=== PATIENT | male | born 1965 | race Two or more races ===

== ENCOUNTER → 2022-06-29 | Outpatient (CLI) | payer OTHER ==
[2022-06-29 14:47] LABS: ALBUMIN 3.4 G/DL (3.2-5.2); ALKALINE PHOSPHATASE 83 U/L (46-116); ALT/SGPT 27 U/L (7.0-40); AST/SGOT 17 U/L (<34); BILIRUBIN,TOTAL 0.5 MG/DL (0.3-1.2); BLOOD UREA NITROGEN 10 MG/DL (9-23); CARBON DIOXIDE LEVEL 23 MMOL/L (20-31); CHLORIDE LEVEL 112 MMOL/L (98-107); CREATININE FOR GFR 1.06 MG/DL (0.70-1.30); GLOMERULAR FILTRATION RATE > 60.0 (>56); GLUCOSE, FASTING 88 MG/DL (60-100); POTASSIUM SERUM 4.2 MMOL/L (3.5-5.1); SODIUM LEVEL 140 MMOL/L (136-145); TOTAL PROTEIN 7.9 G/DL (5.7-8.2)
[2022-06-29 15:03] LABS: HEPATITIS B SURFACE ANTIGEN NEGATIVE (NEGATIVE)
[2022-06-29 15:23] LABS: HEPATITIS C VIRUS ABY INDEX 0.1 INDEX (<0.8)
[2022-06-29 16:05] LABS: APPEARANCE, URINE HAZY (CLEAR); BACTERIA, URINE AUTO NEGATIVE (NEGATIVE); BILIRUBIN, URINE AUTO NEGATIVE (NEGATIVE); BLOOD, URINE BLOOD NEGATIVE (NEGATIVE); COLOR, URINE YELLOW (YELLOW); GLUCOSE, URINE (UA) AUTO NEGATIVE (NEGATIVE); KETONE, URINE AUTO NEGATIVE (NEGATIVE); LEUKOCYTE ESTERASE, URINE AUTO 2+ (NEGATIVE); MUCUS, URINE SMALL (NEGATIVE); NITRITE, URINE AUTO NEGATIVE (NEGATIVE); PROTEIN, URINE AUTO NEGATIVE (NEGATIVE); RBC, URINE AUTO 7 /HPF (0-3); SPECIFIC GRAVITY URINE AUTO 1.021 (1.002-1.035); SQUAMOUS EPITHELIAL CELL UR AU 1 /HPF (0-6); WBC, URINE AUTO 60 /HPF (0-3)
[2022-06-29 18:06] LABS: GC DNA AMPLIFICATION NEGATIVE (NEGATIVE)
[2022-06-30 12:37] LABS: % CD8 Pos Lymph 67.8 % (12.0-35.5); %CD4 Pos Lymphs 18.9 % (30.8-58.5); ABS Eosinophils 0.2 x10E3/uL (0.0-0.4); ABS Lymphs 3.7 x10E3/uL (0.7-3.1); ABS Monocytes 0.5 x10E3/uL (0.1-0.9); ABS Neutophils 1.8 x10E3/uL (1.4-7.0); Abs CD4 Helper 699 /uL (359-1519); Abs CD8 Suppres 2509 /uL (109-897); CD4/CD8 Ratio 0.28 (0.92-3.72); Eosinophils 3 % (Not Estab.); HCT 42.4 % (37.5-51.0); HGB 14.4 g/dL (13.0-17.7); Immature Grans 0 % (Not Estab.); Lymphocytes 59 % (Not Estab.); MCH 32.3 pg (26.6-33.0); MCV 95 fL (79-97); Monocytes 8 % (Not Estab.); Neutrophils 29 % (Not Estab.); Platelets 199 x10E3/uL (150-450); RBC 4.46 x10E6/uL (4.14-5.80); WBC 6.2 x10E3/uL (3.4-10.8)
[2022-07-03 14:08] LABS: HEPATITIS A IgG TOTAL Positive (Negative); HEPATITIS B CORE ANTIBODY IGG Positive (Negative); HIV-1 RNA PCR QUANT 2 LC550285 <20 copies/mL (.); HSV TYPE II IgG SPECIFIC 8.56 index (0.00-0.90)
== END ==
LOC: M PLALAB 11:15
PROVIDERS: ATTEND Internal Medicine Infectious Disease
DX: R21 Rash and other nonspecific skin eruption (principal); B20 Human immunodeficiency virus [HIV] disease; Z11.51 Encounter for screening for human papillomavirus (HPV)

== ENCOUNTER → 2022-07-27 | Outpatient (CLI) | payer OTHER | LOC: M PLALAB 14:43 | PROVIDERS: ATTEND Internal Medicine Infectious Disease | DX: B20 Human immunodeficiency virus [HIV] disease (principal) ==

== ENCOUNTER → 2022-09-26 | Outpatient (REF) | payer OTHER ==
[2022-09-26 17:38] LABS: BLOOD UREA NITROGEN 10 MG/DL (9-23); CALCIUM LEVEL 9.1 MG/DL (8.5-10.1); CARBON DIOXIDE LEVEL 25 MMOL/L (20-31); CHLORIDE LEVEL 104 MMOL/L (98-107); CHOLESTEROL LEVEL 190 MG/DL (<200); CREATININE FOR GFR 1.15 MG/DL (0.70-1.30); GLOMERULAR FILTRATION RATE > 60.0 (>56); GLUCOSE, FASTING 80 MG/DL (60-100); HDL CHOLESTEROL 61.1 MG/DL (>40); LDL CHOLESTEROL 100.9 MG/DL (<100); NON-HDL-C 128.9 MG/DL; POTASSIUM SERUM 4.3 MMOL/L (3.5-5.1); SODIUM LEVEL 135 MMOL/L (136-145); THYROID STIMULATING HORMONE 1.887 uIU/ML (0.55-4.78); TRIGLYCERIDES LEVEL 140 MG/DL (<150)
[2022-09-26 17:44] LABS: HEMOGLOBIN A1c 5.6 % (4.0-6.0)
== END ==
LOC: M LAB REF 16:12
PROVIDERS: ATTEND Nurse Practitioner Family
DX: I10 Essential (primary) hypertension (principal); E66.9 Obesity, unspecified

== ENCOUNTER → 2022-10-19 | Outpatient (CLI) | payer OTHER | LOC: M SOG 08:06 | PROVIDERS: ATTEND Physician Assistant | DX: Z53.9 Procedure and treatment not carried out, unspecified reason (principal) ==

== ENCOUNTER → 2022-11-16 | Outpatient (CLI) | payer OTHER ==
[2022-11-16 18:59] LABS: ALBUMIN 3.8 G/DL (3.2-5.2); ALKALINE PHOSPHATASE 101 U/L (46-116); ALT/SGPT 15 U/L (7.0-40); AST/SGOT 24 U/L (<34); BILIRUBIN,TOTAL 0.9 MG/DL (0.3-1.2); BLOOD UREA NITROGEN 13 MG/DL (9-23); CALCIUM LEVEL 9.6 MG/DL (8.5-10.1); CARBON DIOXIDE LEVEL 27 MMOL/L (20-31); CHLORIDE LEVEL 104 MMOL/L (98-107); CREATININE FOR GFR 1.23 MG/DL (0.70-1.30); GLOMERULAR FILTRATION RATE > 60.0 (>56); GLUCOSE, FASTING 83 MG/DL (60-100); POTASSIUM SERUM 4.1 MMOL/L (3.5-5.1); SODIUM LEVEL 139 MMOL/L (136-145); TOTAL PROTEIN 8.5 G/DL (5.7-8.2)
== END ==
LOC: M PLALAB 13:40
PROVIDERS: ATTEND Internal Medicine Infectious Disease
DX: B20 Human immunodeficiency virus [HIV] disease (principal); N52.9 Male erectile dysfunction, unspecified; Z20.2 Contact with and (suspected) exposure to infections with a predominantly sexual mode of transmission

== ENCOUNTER 2022-12-06 17:10 | Emergency (ER) | payer OTHER ==
[~2022-12-06] VITALS: Ht 170.2 cm; Wt 180.0 kg
[2022-12-06] MEDS ORDERED: SILD100T (17:25)
[2022-12-06] MEDS ORDERED: AMLO1TAB25 (17:25)
[2022-12-06 18:49] VITALS: BP 155/115; TEMP 97.6; O2SAT 98
[2022-12-06] MEDS ORDERED: ACETAMINOPHEN 500 MG TAB PO ONE (19:05)
[2022-12-06] MEDS ORDERED: IBUPROFEN 800 MG TAB PO ONE (19:05)
== END 2022-12-06 19:12 | disposition home or self-care (01) ==
LOC: M ED 17:10
DX: S50.312A Abrasion of left elbow, initial encounter (principal); S06.0X0A Concussion without loss of consciousness, initial encounter; M25.561 Pain in right knee; V13.4XXA Pedal cycle driver injured in collision with car, pick-up truck or van in traffic accident, initial encounter; I10 Essential (primary) hypertension; F17.200 Nicotine dependence, unspecified, uncomplicated; F12.90 Cannabis use, unspecified, uncomplicated

== ENCOUNTER → 2023-01-15 | Outpatient (CLI) | payer OTHER ==
[~2023-01-15] MED LIST: AMLO1TAB25; SILD100T
[2023-01-15 20:13] LABS: CHLAMYDIA DNA AMPLIFICATION NEGATIVE (NEGATIVE); GC DNA AMPLIFICATION NEGATIVE (NEGATIVE)
[2023-01-15 20:15] LABS: CHLAMYDIA DNA AMPLIFICATION NEGATIVE (NEGATIVE); GC DNA AMPLIFICATION NEGATIVE (NEGATIVE)
== END ==
LOC: M PLALAB 13:42
PROVIDERS: ATTEND Internal Medicine Infectious Disease
DX: B20 Human immunodeficiency virus [HIV] disease (principal)

== ENCOUNTER → 2023-02-08 | Outpatient (CLI) | payer OTHER | LOC: M SOG 15:28 | PROVIDERS: ATTEND Physician Assistant | DX: M25.572 Pain in left ankle and joints of left foot (principal) ==

== ENCOUNTER → 2023-05-18 | Outpatient (CLI) | payer OTHER ==
[2023-05-18 15:53] LABS: ALBUMIN 3.7 G/DL (3.2-5.2); BILIRUBIN,TOTAL 0.8 MG/DL (0.3-1.2); CALCIUM LEVEL 9.1 MG/DL (8.5-10.1); CREATININE FOR GFR 1.4 MG/DL (0.70-1.30); GLOMERULAR FILTRATION RATE 55.6 (>56); POTASSIUM SERUM 3.8 MMOL/L (3.5-5.1); TOTAL PROTEIN 8.5 G/DL (5.7-8.2)
[2023-05-22 13:07] LABS: % CD8 Pos Lymph 64.2 % (12.0-35.5); %CD4 Pos Lymphs 20.3 % (30.8-58.5); ABS Basophils 0.1 x10E3/uL (0.0-0.2); ABS Eosinophils 0.1 x10E3/uL (0.0-0.4); ABS Lymphs 4.4 x10E3/uL (0.7-3.1); ABS Monocytes 0.6 x10E3/uL (0.1-0.9); ABS Neutophils 2.6 x10E3/uL (1.4-7.0); Abs CD4 Helper 893 /uL (359-1519); Abs CD8 Suppres 2825 /uL (109-897); CD4/CD8 Ratio 0.32 (0.92-3.72); Eosinophils 1 % (Not Estab.); HCT 44.4 % (37.5-51.0); HGB 14.6 g/dL (13.0-17.7); HIV-1 RNA PCR QUANT 2 LC550285 <20 copies/mL (.); Immature Grans 0 % (Not Estab.); Lymphocytes 57 % (Not Estab.); MCH 30.9 pg (26.6-33.0); MCHC 32.9 g/dL (31.5-35.7); MCV 94 fL (79-97); Monocytes 7 % (Not Estab.); Neutrophils 34 % (Not Estab.); Platelets 273 x10E3/uL (150-450); RBC 4.72 x10E6/uL (4.14-5.80); RDW 14.4 % (11.6-15.4); WBC 7.7 x10E3/uL (3.4-10.8)
== END ==
LOC: M LAB 15:04
PROVIDERS: ATTEND Internal Medicine Infectious Disease
DX: B20 Human immunodeficiency virus [HIV] disease (principal)

== ENCOUNTER → 2023-08-27 | Outpatient (CLI) | payer OTHER ==
[2023-08-27 16:51] LABS: ALBUMIN 3.8 G/DL (3.2-5.2); BILIRUBIN,TOTAL 0.6 MG/DL (0.3-1.2); CALCIUM LEVEL 9.6 MG/DL (8.5-10.1); CREATININE FOR GFR 1.57 MG/DL (0.70-1.30); GLOMERULAR FILTRATION RATE 48.7 (>56); POTASSIUM SERUM 4.6 MMOL/L (3.5-5.1); TOTAL PROTEIN 8.1 G/DL (5.7-8.2)
[2023-08-27 19:34] LABS: GC DNA AMPLIFICATION NEGATIVE (NEGATIVE)
[2023-08-27 20:53] LABS: GC DNA AMPLIFICATION NEGATIVE (NEGATIVE)
[2023-08-28 10:17] LABS: RPR REACTIVE (NON-REACTIVE)
== END ==
LOC: M PLALAB 14:06
PROVIDERS: ATTEND Internal Medicine Infectious Disease
DX: B20 Human immunodeficiency virus [HIV] disease (principal)

== ENCOUNTER → 2023-12-17 | Outpatient (CLI) | payer OTHER ==
[2023-12-17 15:55] LABS: ALBUMIN 3.5 G/DL (3.2-5.2); BILIRUBIN,TOTAL 0.7 MG/DL (0.3-1.2); CALCIUM LEVEL 9.8 MG/DL (8.5-10.1); CHOLESTEROL RISK RATIO 3.23 (<5); CREATININE FOR GFR 1.32 MG/DL (0.70-1.30); GLOMERULAR FILTRATION RATE 59.3 (>56); HDL CHOLESTEROL 60.3 MG/DL (>40); LDL CHOLESTEROL 117.9 MG/DL (<100); NON-HDL-C 134.7 MG/DL; POTASSIUM SERUM 5.1 MMOL/L (3.5-5.1); TOTAL PROTEIN 8.1 G/DL (5.7-8.2)
[2023-12-17 16:06] LABS: HEMOGLOBIN A1c 5.6 % (4.0-6.0)
[2023-12-19 12:46] LABS: RPR REACTIVE (NON-REACTIVE)
[2023-12-19 15:11] LABS: % CD4+ LYMPHS 22.4 % (30.8-58.5); ABSOLUTE CD4 HELPER 784 /uL (359-1519); BASOPHILS 1 % (Not Estab.); EOSINOPHILS 2 % (Not Estab.); EOSINOPHILS ABSOLUTE 0.1 x10E3/uL (0.0-0.4); HCT 44.7 % (37.5-51.0); HGB 14.3 g/dL (13.0-17.7); LYMPHOCYTES 59 % (Not Estab.); LYMPHOCYTES ABSOLUTE 3.5 x10E3/uL (0.7-3.1); MCH 31.6 pg (26.6-33.0); MCV 99 fL (79-97); MONOCYTES 6 % (Not Estab.); MONOCYTES ABSOLUTE 0.3 x10E3/uL (0.1-0.9); NEUTROPHILS 32 % (Not Estab.); NEUTROPHILS ABSOLUTE 1.9 x10E3/uL (1.4-7.0); PLT 208 x10E3/uL (150-450); RBC 4.52 x10E6/uL (4.14-5.80); RDW 14.5 % (11.6-15.4)
[2023-12-20 12:42] LABS: TREPONEMA PALLIDUM ANTIBODIES POSITIVE (NEGATIVE)
[2023-12-20 14:41] LABS: HIV-1 RNA PCR QUANT 2 <20 DETECTED copies/mL (NOT DETECTED); HIV-1 RNA PCR QUANT 3 <1.30 DETECTED (NOT DETECTED)
== END ==
LOC: M PLALAB 13:44
PROVIDERS: ATTEND Internal Medicine Infectious Disease
DX: B20 Human immunodeficiency virus [HIV] disease (principal); Z86.19 Personal history of other infectious and parasitic diseases; I10 Essential (primary) hypertension

== ENCOUNTER 2024-03-27 17:53 | Emergency (ER) | payer OTHER ==
[~2024-03-27] VITALS: Ht 170.2 cm; Wt 87.2 kg
[2024-03-28 02:05] VITALS: BP 133/84; TEMP 98.9; O2SAT 97
== END 2024-03-28 02:05 | disposition home or self-care (01) ==
LOC: M ED 17:53
DX: R10.9 Unspecified abdominal pain (principal); I10 Essential (primary) hypertension; N52.9 Male erectile dysfunction, unspecified; R16.0 Hepatomegaly, not elsewhere classified

== ENCOUNTER 2024-04-01 12:46 | Emergency (ER) | payer OTHER ==
[~2024-04-01] VITALS: Ht 165.1 cm; Wt 96.1 kg
[2024-04-01 12:51] VITALS: BP 180/94; TEMP 97.6; O2SAT 99
[2024-04-01] MEDS: KETOROLAC 60MG 2ML VIAL IM ONE (14:19)
[2024-04-01 14:29] LABS: APPEARANCE, URINE CLEAR (CLEAR); BACTERIA, URINE AUTO NEGATIVE (NEGATIVE); BILIRUBIN, URINE AUTO NEGATIVE (NEGATIVE); BLOOD, URINE BLOOD NEGATIVE (NEGATIVE); COLOR, URINE YELLOW (YELLOW); GLUCOSE, URINE (UA) AUTO NEGATIVE (NEGATIVE); KETONE, URINE AUTO NEGATIVE (NEGATIVE); LEUKOCYTE ESTERASE, URINE AUTO NEGATIVE (NEGATIVE); NITRITE, URINE AUTO NEGATIVE (NEGATIVE); PROTEIN, URINE AUTO 1+ mg/dL (NEGATIVE); RBC, URINE AUTO 1 /HPF (0-3); SPECIFIC GRAVITY URINE AUTO 1.017 (1.002-1.035); SQUAMOUS EPITHELIAL CELL UR AU 0 /HPF (0-6); WBC, URINE AUTO 2 /HPF (0-3)
[2024-04-01] MEDS ORDERED: NAPR-837 PO (14:41)
== END 2024-04-01 14:48 | disposition home or self-care (01) ==
LOC: M ED 12:46 → EDBD 12:46 → M ED 14:48
DX: S50.11XA Contusion of right forearm, initial encounter (principal); S39.012A Strain of muscle, fascia and tendon of lower back, initial encounter; V09.20XA Pedestrian injured in traffic accident involving unspecified motor vehicles, initial encounter; Y92.410 Unspecified street and highway as the place of occurrence of the external cause; Y93.9 Activity, unspecified; Y99.9 Unspecified external cause status; I10 Essential (primary) hypertension; Z79.899 Other long term (current) drug therapy
CPT/HCPCS: 81001; 96372; 99284; J1885

== ENCOUNTER → 2024-04-15 | Outpatient (CLI) | payer OTHER ==
[~2024-04-15] MED LIST changes: +NAPR-837 PO
[2024-04-15 15:13] LABS: ALBUMIN 3.9 G/DL (3.2-5.2); ALKALINE PHOSPHATASE 79 U/L (40-129); ALT/SGPT 19 U/L (7.0-40); AST/SGOT 20 U/L (<34); BILIRUBIN,TOTAL 0.9 MG/DL (0.3-1.2); BLOOD UREA NITROGEN 15 MG/DL (9-23); CALCIUM LEVEL 9.6 MG/DL (8.5-10.1); CARBON DIOXIDE LEVEL 27 MMOL/L (20-31); CHLORIDE LEVEL 108 MMOL/L (98-107); CREATININE FOR GFR 1.18 MG/DL (0.70-1.30); GLOMERULAR FILTRATION RATE > 60.0 (>56); GLUCOSE, FASTING 85 MG/DL (60-100); POTASSIUM SERUM 4.2 MMOL/L (3.5-5.1); SODIUM LEVEL 141 MMOL/L (136-145); TOTAL PROTEIN 8.7 G/DL (5.7-8.2)
[2024-04-16 11:23] LABS: RPR REACTIVE (NON-REACTIVE)
[2024-04-17 13:19] LABS: TREPONEMA PALLIDUM ANTIBODIES POSITIVE (NEGATIVE)
== END ==
LOC: M PLALAB 12:42
PROVIDERS: ATTEND Internal Medicine Infectious Disease
DX: B20 Human immunodeficiency virus [HIV] disease (principal); Z86.19 Personal history of other infectious and parasitic diseases

== ENCOUNTER → 2024-05-27 | Outpatient (CLI) | payer OTHER ==
[~2024-05-27] MED LIST changes: +AMLO1TAB25 PO; +LEXA1TAB PO
[2024-05-27 16:04] LABS: BASO % 0.5 % (0.0-1.0); EOS % 0.3 % (0.0-3.0); HEMATOCRIT 46.4 % (42.0-52.0); HEMOGLOBIN 15.6 g/dl (13.5-17.5); LYMPH # 2.9 10^3/uL (1.5-5.0); LYMPH % 38.4 % (24.0-44.0); MEAN CORPUSCULAR HEMOGLOBIN 32.6 pg (27.0-33.0); MEAN CORPUSCULAR HGB CONC 33.6 g/dl (32.0-36.5); MEAN CORPUSCULAR VOLUME 96.9 fl (80.0-96.0); MONO # 0.6 10^3/uL (0.0-0.8); MONO % 8.5 % (2.0-8.0); NEUTROPHILS # 3.9 10^3/uL (1.5-8.5); PLATELET COUNT, AUTOMATED 258 10^3/uL (150-450); RED BLOOD COUNT 4.79 10^6/uL (4.30-6.10); WHITE BLOOD COUNT 7.4 10^3/uL (4.0-10.0)
[2024-05-27 16:34] LABS: CALCIUM LEVEL 9.8 MG/DL (8.5-10.1); CREATININE FOR GFR 1.32 MG/DL (0.70-1.30); GLOMERULAR FILTRATION RATE 59.3 (>56); POTASSIUM SERUM 4.2 MMOL/L (3.5-5.1)
== END ==
LOC: M PLALAB 12:21
PROVIDERS: ATTEND Internal Medicine Infectious Disease
DX: Z01.818 Encounter for other preprocedural examination (principal); I10 Essential (primary) hypertension

== ENCOUNTER 2024-06-06 06:58 | Day surgery (SDC) | payer OTHER ==
[~2024-06-06] VITALS: Ht 167.6 cm; Wt 81.7 kg
[2024-06-06] VITALS (8 sets, daily range): BP systolic 105–152; BP diastolic 66–88; TEMP 97.3–97.9; O2SAT 93–97
[~2024-06-06 06:58] MED LIST changes: +CABO6SUS IM; +DOXY100C3 PO; +SILD100T PO; +VENTAER INH
[2024-06-06] MEDS ORDERED: propofoL 200 MG/20 ML VIAL As Ordered ONE (08:02)
[2024-06-06] MEDS ORDERED: ROCURONIUM BROMIDE 50MG/5ML VIAL As Ordered ONE (08:02)
[2024-06-06] MEDS ORDERED: LIDOCAINE 2% 100MG/5ML SDV (FOR ANES.) As Ordered ONE (08:02)
[2024-06-06] MEDS: CelecoXIB 400 MG CAP PO ONE (08:15)
[2024-06-06] MEDS ORDERED: KETOROLAC 30 MG/ML 1ML VIAL As Ordered ONE (08:23)
[2024-06-06] MEDS ORDERED: LR 1,000 ML IV SCH (08:50)
[2024-06-06] MEDS ORDERED: MIDAZOLAM INJ 2MG/2ML VIAL As Ordered ONE (08:56)
[2024-06-06] MEDS ORDERED: fentaNYL 100 MCG/2 ML INJECTION As Ordered ONE (09:18)
[2024-06-06] MEDS: ceFAZolin SOD 2 GM IV ONCE IV ONE (09:25)
[2024-06-06] MEDS ORDERED: ONDANSETRON 4MG 2ML VIAL As Ordered ONE (09:27)
[2024-06-06] MEDS ORDERED: ACETAMINOPHEN 1000MG/100ML IV BAG As Ordered ONE (09:38)
[2024-06-06] MEDS ORDERED: SUGAMMADEX SODIUM 500 MG/5 ML VIAL (BRIDION) As Ordered ONE (10:03)
[2024-06-06] MEDS: LIDOCAINE 1% SDV 30ML VIAL As Ordered ONE (10:25)
[2024-06-06] MEDS ORDERED: ACETAMINOPHEN 325 MG TAB PO PRN (10:40)
[2024-06-06] MEDS ORDERED: ONDANSETRON 4MG 2ML VIAL IV PRN (10:40)
[2024-06-06] MEDS ORDERED: PERCOCET 5MG/325MG TAB PO PRN (10:40)
[2024-06-06] MEDS: HYDROMORPHONE HCL 0.5 MG/ 0.5 ML SYRINGE IV PRN (11:10)
[2024-06-06] MEDS: oxyCODONE 5MG TAB PO PRN (11:11)
[2024-06-06] MEDS: ONDANSETRON 4MG 2ML VIAL IV PRN (11:12)
[2024-06-06] MEDS: fentaNYL 100 MCG/2 ML INJECTION IV PRN (11:25)
[2024-06-06] MEDS ORDERED: HOME MED LIST COMPLETE! XX SCH (13:15)
[2024-06-06] MEDS: PERCOCET 5MG/325MG TAB PO PRN (13:42)
[2024-06-06] MEDS: KETOROLAC 30 MG/ML 1ML VIAL IV SCH (15:07)
[2024-06-07 01:00] VITALS: BP 136/90; TEMP 98.2; O2SAT 97
[2024-06-07] MEDS: MORPHINE 10 MG/ML 1ML VIAL IV ONE (02:22)
[2024-06-07 04:00] VITALS: BP 132/65; TEMP 97.5; O2SAT 99
[2024-06-07 09:05] VITALS: BP 127/69
[2024-06-07] MEDS: ESCITALOPRAM OXALATE 10 MG TAB (LEXAPRO) PO SCH (09:05)
[2024-06-07] MEDS ORDERED: KETO10TAB PO (10:22)
== END 2024-06-07 11:55 | disposition home or self-care (01) ==
LOC: M SDC 06:58 → M RR INP 06:59 → UNDOADMOB 06:59 → M MS5PR 12:15 → M RR INP 12:15 → M MS5PR 12:15 → M SDC 06-07 11:55 → UNDODISOB 06-07 11:55
PROVIDERS: ATTEND Surgery
DX: K42.0 Umbilical hernia with obstruction, without gangrene (principal); G89.18 Other acute postprocedural pain; B20 Human immunodeficiency virus [HIV] disease; Z79.899 Other long term (current) drug therapy; F17.210 Nicotine dependence, cigarettes, uncomplicated
CPT/HCPCS: 49616; 96374; 96375; 96376; C1781; J0131; J0665; J0690; J1100; J1171; J1885; J2250; J2405; J3010

== ENCOUNTER → 2024-06-25 | Outpatient (REF) | payer OTHER ==
[~2024-06-25] MED LIST changes: +KETO10TAB PO
[2024-06-25 13:33] LABS: APPEARANCE, URINE CLOUDY (CLEAR); BACTERIA, URINE AUTO 2+ (NEGATIVE); BILIRUBIN, URINE AUTO NEGATIVE (NEGATIVE); BLOOD, URINE BLOOD 1+ (NEGATIVE); COLOR, URINE AMBER (YELLOW); GLUCOSE, URINE (UA) AUTO NEGATIVE (NEGATIVE); KETONE, URINE AUTO NEGATIVE (NEGATIVE); LEUKOCYTE ESTERASE, URINE AUTO 3+ (NEGATIVE); MUCUS, URINE SMALL (NEGATIVE); NITRITE, URINE AUTO POSITIVE (NEGATIVE); PROTEIN, URINE AUTO 1+ mg/dL (NEGATIVE); RBC, URINE AUTO 9 /HPF (0-3); SPECIFIC GRAVITY URINE AUTO 1.023 (1.002-1.035); SQUAMOUS EPITHELIAL CELL UR AU 3 /HPF (0-6); WBC, URINE AUTO TNTC /HPF (0-3)
[2024-06-25 14:28] LABS: Trichomonas vaginalis (AMP) NOT DETECTED (NEGATIVE)
[2024-06-25 14:52] LABS: GC DNA AMPLIFICATION NEGATIVE (NEGATIVE)
== END ==
LOC: EEVIPCON 11:56 → M LAB REF 11:56
PROVIDERS: ATTEND Physician Assistant
DX: Z20.2 Contact with and (suspected) exposure to infections with a predominantly sexual mode of transmission (principal)

== ENCOUNTER 2024-07-02 10:54 | Emergency (ER) | payer OTHER ==
[~2024-07-02] VITALS: Ht 170.2 cm; Wt 79.5 kg
[2024-07-02 13:54] LABS: BASO # 0.1 10^3/uL (0.0-0.2); BASO % 0.8 % (0.0-1.0); EOS # 0.1 10^3/uL (0.0-0.5); EOS % 1.5 % (0.0-3.0); HEMATOCRIT 43.2 % (42.0-52.0); HEMOGLOBIN 14.2 g/dl (13.5-17.5); LYMPH # 3.3 10^3/uL (1.5-5.0); LYMPH % 42.3 % (24.0-44.0); MEAN CORPUSCULAR HEMOGLOBIN 31.4 pg (27.0-33.0); MEAN CORPUSCULAR HGB CONC 32.9 g/dl (32.0-36.5); MEAN CORPUSCULAR VOLUME 95.6 fl (80.0-96.0); MONO # 0.7 10^3/uL (0.0-0.8); MONO % 8.7 % (2.0-8.0); NEUTROPHILS # 3.6 10^3/uL (1.5-8.5); NEUTROPHILS % 46.4 % (36.0-66.0); PLATELET COUNT, AUTOMATED 292 10^3/uL (150-450); RED BLOOD COUNT 4.52 10^6/uL (4.30-6.10); WHITE BLOOD COUNT 7.8 10^3/uL (4.0-10.0)
[2024-07-02 14:02] LABS: ERYTHROCYTE SEDIMENTATION RATE 86 mm/hr (0-20)
[2024-07-02 14:24] LABS: C REACTIVE PROTEIN QUANTITATIV 1.39 MG/DL (<1.0)
[2024-07-02 14:28] LABS: CALCIUM LEVEL 9.7 MG/DL (8.5-10.1); CREATININE FOR GFR 1.09 MG/DL (0.70-1.30); GLOMERULAR FILTRATION RATE 78.7 (>56); POTASSIUM SERUM 4.7 MMOL/L (3.5-5.1)
[2024-07-02] MEDS: CLINDAMYCIN 900 MG in IV 1 EA IV ONE (15:18)
[2024-07-02] MEDS ORDERED: CLEO300C2 PO (16:09)
[2024-07-02] MEDS ORDERED: FLUC-1 PO (16:09)
[2024-07-02 16:20] VITALS: BP 164/96; TEMP 97.3; O2SAT 97
== END 2024-07-02 16:31 | disposition home or self-care (01) ==
LOC: M ED 10:54
DX: L03.032 Cellulitis of left toe (principal); B20 Human immunodeficiency virus [HIV] disease; Z79.899 Other long term (current) drug therapy
CPT/HCPCS: 80048; 83605; 85025; 85652; 86140; 87040; 87070; 87077; 87186; 96374; 99284; J0737

== ENCOUNTER → 2024-10-17 | Outpatient (CLI) | payer OTHER ==
[~2024-10-17] MED LIST changes: +CLEO300C2 PO; +FLUC-1 PO
== END ==
LOC: M PLAIMG 13:48
PROVIDERS: ATTEND Internal Medicine Addiction Medicine
DX: J90 Pleural effusion, not elsewhere classified (principal)

== ENCOUNTER → 2024-12-04 | Outpatient (REF) | payer OTHER | LOC: M SFHCPLAZ 12:23 | PROVIDERS: ATTEND Internal Medicine Infectious Disease | DX: B20 Human immunodeficiency virus [HIV] disease (principal) ==

== ENCOUNTER 2024-12-16 17:55 | Emergency (ER) | payer OTHER ==
[~2024-12-16] VITALS: Ht 165.1 cm; Wt 83.3 kg
[2024-12-16 20:29] LABS: BASO # 0.0 10^3/uL (0.0-0.2); BASO % 0.5 % (0.0-1.0); EOS # 0.1 10^3/uL (0.0-0.5); EOS % 1.2 % (0.0-3.0); LYMPH # 3.1 10^3/uL (1.5-5.0); LYMPH % 47.7 % (24.0-44.0); MONO # 0.5 10^3/uL (0.0-0.8); MONO % 8.1 % (2.0-8.0); NEUTROPHILS # 2.7 10^3/uL (1.5-8.5); NEUTROPHILS % 42.3 % (36.0-66.0); PLATELET COUNT, AUTOMATED 257 10^3/uL (150-450)
[2024-12-16 20:57] LABS: C REACTIVE PROTEIN QUANTITATIV 1.13 MG/DL (<1.0)
[2024-12-16 20:58] LABS: ALT/SGPT 13.0 U/L (7.0-40); AST/SGOT 18.0 U/L (<34); CALCIUM LEVEL 9.6 MG/DL (8.5-10.1); CARBON DIOXIDE LEVEL 28.0 MMOL/L (20-31); CHLORIDE LEVEL 107.0 MMOL/L (98-107); CREATININE FOR GFR 1.47 MG/DL (0.70-1.30); GLOMERULAR FILTRATION RATE 54.6 (>56); POTASSIUM SERUM 4.9 MMOL/L (3.5-5.1); SODIUM LEVEL 144.0 MMOL/L (136-145)
[2024-12-16 21:55] VITALS: TEMP 98.8
[2024-12-16 22:16] VITALS: BP 153/96; O2SAT 98
== END 2024-12-16 22:17 | disposition home or self-care (01) ==
LOC: M ED 17:55
DX: L03.116 Cellulitis of left lower limb (principal); L02.416 Cutaneous abscess of left lower limb; I10 Essential (primary) hypertension; Z79.899 Other long term (current) drug therapy